=== PATIENT | female | born 1995 | race Asian ===

== ENCOUNTER 2024-11-15 19:00 | Inpatient (IN) | payer BC ==
[2024-11-15] MEDS ORDERED: Lidocaine 1% (PF) 30 ML VIAL SC PRN (23:05)
[2024-11-15] MEDS ORDERED: Ibuprofen 800 MG TAB PO PRN (23:05)
[2024-11-15] MEDS ORDERED: Promethazine HCl 25 MG/ML VIAL IM PRN (23:05)
[2024-11-15] MEDS ORDERED: HYDROcodone/Acetaminophen 5/325 mg Tablet PO PRN ×2 (23:05)
[2024-11-15] MEDS ORDERED: Ondansetron PF 4 MG/2 ML Vial IVP PRN (23:05)
[2024-11-15] MEDS ORDERED: hydrALAZINE 20 MG/ML VIAL SLOW IVP PRN (23:05)
[2024-11-15] MEDS ORDERED: Misoprostol 100 MCG TAB VAG SCH (23:05)
[2024-11-15] MEDS ORDERED: fentaNYL 50 mcg/mL 1 mL Vial SLOW IVP PRN (23:05)
[2024-11-15 23:10] VITALS: BMI 27.9
[2024-11-15] MEDS ORDERED: Lactated Ringer's 1,000 ML IV SCH (23:15)
[2024-11-15] MEDS ORDERED: Oxytocin 30 units/NS 500 ML 500 ML IV SCH ×3 (23:15)
[2024-11-15 23:45] LABS: Hematocrit 35.6 % (34.9-44.5); Hemoglobin 12.4 g/dL (12.0-15.5); Mean Corpuscular HGB CONC 34.8 g/dL (32.0-36.0); Mean Corpuscular Volume 86.2 fL (81.6-98.3); Platelet Count 235 10x3/uL (150-450); RBC Distribution Width 13.2 % (11.5-14.5); Red Blood Cell (RBC) Count 4.13 10x6/uL (3.90-5.03); White Blood Cell (WBC) Count 7.92 10x3/uL (3.5-10.5)
[2024-11-16] MEDS: Misoprostol 100 MCG TAB VAG SCH (00:06)
[2024-11-16 00:23] LABS: Hep B Surf Ag - L&D Non-Reactive S/CO (NonReactive)
[2024-11-16 00:24] LABS: Syphilis Antibody Nonreactive (Nonreactive); Syphilis Antibody Index 0.07 S/CO (<1.00 Non-Reactive)
[2024-11-16] MEDS ORDERED: Bicitra 30 ML UDCUP PO PRN (08:09)
[2024-11-16] MEDS: CEFAZOLIN 2 GM in Sodium Chloride 0.9% 100 ML IVPB SCH (08:49)
[2024-11-16] MEDS: Famotidine/PF 20 mg/2ml Vial SLOW IVP PRN (08:49)
[2024-11-16] MEDS ORDERED: Naloxone HCl 0.4 mg/ml Vial IVP PRN (10:19)
[2024-11-16] MEDS ORDERED: Morphine 4 MG/ML VIAL SLOW IVP PRN (10:19)
[2024-11-16] MEDS ORDERED: Naloxone HCl 0.4 mg/ml Vial IV PRN (10:19)
[2024-11-16] MEDS ORDERED: Ketorolac Tromethamine 30 MG (1 mL) VIAL IVP PRN (10:19)
[2024-11-16] MEDS ORDERED: Ondansetron PF 4 MG/2 ML Vial IVP PRN ×2 (10:19→16:49)
[2024-11-16] MEDS ORDERED: fentaNYL 50 mcg/mL 1 mL Vial SLOW IVP PRN (10:19)
[2024-11-16] MEDS ORDERED: Moisturizing Cream (Eucerin) 113 GM JAR TOP PRN (10:19)
[2024-11-16] MEDS ORDERED: Meperidine HCl/PF 25 MG (1 mL) VIAL SLOW IVP PRN (10:19)
[2024-11-16] MEDS ORDERED: diphenhydrAMINE 50 MG/ML VIAL IVP PRN (10:19)
[2024-11-16] MEDS ORDERED: Communication Order-Pharmacy FS SCH (10:30)
[2024-11-16] MEDS ORDERED: Ketorolac Tromethamine 30 MG (1 mL) VIAL IVP SCH (10:30)
[2024-11-16] MEDS: Ondansetron PF 4 MG/2 ML Vial IVP PRN (12:13)
[2024-11-16] MEDS: Naloxone HCl 0.4 mg/ml Vial IVP PRN (12:39)
[2024-11-16] MEDS: Promethazine HCl 25 MG/ML VIAL IM PRN (13:55)
[2024-11-16] MEDS: fentaNYL 50 mcg/mL 1 mL Vial ONE (14:45)
[2024-11-16] MEDS: Ondansetron PF 4 MG/2 ML Vial ONE (14:45)
[2024-11-16] MEDS: Ketorolac Tromethamine 30 MG (1 mL) VIAL ONE (14:45)
[2024-11-16] MEDS: Phenylephrine 40 MG/NS 250 ML 250 ML ONE (14:45)
[2024-11-16] MEDS: Oxytocin 10 UNITS/ML VIAL ONE (14:45)
[2024-11-16] MEDS: Dexamethasone 10 MG/ML VIAL ONE (14:45)
[2024-11-16] MEDS: Morphine PF 10 MG/10 ML VIAL ONE (14:45)
[2024-11-16] MEDS ORDERED: Oxytocin 30 units/NS 500 ML 500 ML IV SCH (16:49)
[2024-11-16] MEDS ORDERED: Zolpidem Tartrate 5 MG TAB PO PRN (16:49)
[2024-11-16] MEDS ORDERED: Lanolin Ointment 7 GM TUBE TOP PRN (16:49)
[2024-11-16] MEDS ORDERED: hydrALAZINE 20 MG/ML VIAL SLOW IVP PRN (16:49)
[2024-11-16] MEDS ORDERED: Bisacodyl 10 MG SUPP PR PRN (16:49)
[2024-11-16] MEDS ORDERED: Boostrix 0.5 ML (Tdap) VIAL (>/=7 yrs of age) IM ONE (16:49)
[2024-11-16] MEDS ORDERED: Ibuprofen 800 MG TAB PO SCH (17:00)
[2024-11-16] MEDS: diphenhydrAMINE 25 MG CAP PO PRN (17:53)
[2024-11-16] MEDS: Ketorolac Tromethamine 30 MG (1 mL) VIAL IVP SCH (18:28)
[2024-11-16] MEDS: Docusate 100 MG CAP PO SCH (20:54)
[2024-11-17 05:06] LABS: Hematocrit 29.2 % (34.9-44.5); Hemoglobin 9.8 g/dL (12.0-15.5); Mean Corpuscular HGB CONC 33.6 g/dL (32.0-36.0); Mean Corpuscular Hemoglobin 29.2 pg (27.0-33.0); Mean Corpuscular Volume 86.9 fL (81.6-98.3); Mean Platelet Volume 10.7 fL (7.4-10.4); Platelet Count 187 10x3/uL (150-450); Red Blood Cell (RBC) Count 3.36 10x6/uL (3.90-5.03); White Blood Cell (WBC) Count 11.72 10x3/uL (3.5-10.5)
[2024-11-17] MEDS: Ferrous Sulfate 325 MG TAB PO SCH (07:01)
[2024-11-17] MEDS: Prenatal Vitamin 1 TAB PO SCH (07:30)
[2024-11-17] MEDS: HYDROcodone/Acetaminophen 5/325 mg Tablet PO PRN (18:15)
[2024-11-17] MEDS: Ibuprofen 800 MG TAB PO SCH (18:16)
[2024-11-18 08:19] VITALS: TEMP 98.2
[2024-11-18] MEDS: HYDROcodone/Acetaminophen 5/325 mg Tablet PO PRN (16:42)
[2024-11-19] MEDS: Simethicone Chewable 80 MG TAB PO PRN (08:07)
[2024-11-19 08:53] VITALS: BP 117/72
== END 2024-11-19 18:58 | disposition home or self-care (01) | DRG 788 ==
LOC: CSHLD 20:18 → CSHPP 11-16 14:00
PROVIDERS: ADMIT Obstetrics & Gynecology; ATTEND Obstetrics & Gynecology
PROC: 10D00Z1 Extraction of Products of Conception, Low, Open Approach (ICD-10-PCS; principal; 2024-11-16)
PROC: 3E0P7VZ Introduction of Hormone into Female Reproductive, Via Natural or Artificial Opening (ICD-10-PCS; 2024-11-16)
DX: O24.420 Gestational diabetes mellitus in childbirth, diet controlled (principal); O76 Abnormality in fetal heart rate and rhythm complicating labor and delivery; Z3A.37 37 weeks gestation of pregnancy; Z37.0 Single live birth; O34.13 Maternal care for benign tumor of corpus uteri, third trimester; D25.9 Leiomyoma of uterus, unspecified; D50.9 Iron deficiency anemia, unspecified; O99.03 Anemia complicating the puerperium
CPT/HCPCS: 36415; 36416; 51702; 85027; 86780; 86850; 86900; 86901; 87340; J1100; J1885; J2274; J2310; J2405; J2550; J2590; J3010; J3490